=== PATIENT | female | born 1960 | race Caucasian/White ===

== ENCOUNTER → 2024-04-22 10:00 | Outpatient (REF) | payer BC, SELFPAY | LOC: RCS 10:00 | PROVIDERS: ATTENDING PHYSICIAN Internal Medicine Cardiovascular Disease; FAMILY PHYSICIAN Family Medicine | DX: I10 Essential (primary) hypertension (principal); I49.3 Ventricular premature depolarization; Z86.79 Personal history of other diseases of the circulatory system | CPT/HCPCS: 93017; 93350 ==

== ENCOUNTER → 2024-05-13 10:38 | Outpatient (REF) | payer BC, SELFPAY | LOC: WDC 10:38 | PROVIDERS: ATTENDING PHYSICIAN Family Medicine | DX: Z78.0 Asymptomatic menopausal state (principal); Z12.31 Encounter for screening mammogram for malignant neoplasm of breast | CPT/HCPCS: 77063; 77067; 77080 ==

== ENCOUNTER → 2024-07-19 15:16 | Outpatient (REF) | payer BC, SELFPAY | LOC: RAD 15:16 | PROVIDERS: ATTENDING PHYSICIAN Internal Medicine Critical Care Medicine; FAMILY PHYSICIAN Family Medicine | DX: R91.8 Other nonspecific abnormal finding of lung field (principal) | CPT/HCPCS: 71250 ==

== ENCOUNTER 2024-08-22 06:15 | Day surgery (SDC) | payer BC, SELFPAY ==
[2024-08-02 12:31] VITALS: BMI 27.3
[2024-08-02 13:29] LABS: INR 0.91; PT 12.6 Sec (11.4-14.6)
[2024-08-02 13:30] LABS: APTT 25.7 Sec (23.4-35.0)
[2024-08-22] VITALS (9 sets, daily range): BP systolic 140–153; BP diastolic 68–73; BMI 27.9
[2024-08-22] MEDS: EMEND 40 MG PO (07:08)
[2024-08-22] MEDS: ZOFRAN 4 MG IV (10:41)
== END 2024-08-22 11:45 | disposition home or self-care (01) ==
LOC: SDS 06:15
PROVIDERS: ATTENDING PHYSICIAN Internal Medicine Critical Care Medicine; FAMILY PHYSICIAN Family Medicine; OTHER PHYSICIAN Internal Medicine Cardiovascular Disease
DX: J84.10 Pulmonary fibrosis, unspecified (principal); R91.8 Other nonspecific abnormal finding of lung field; R59.0 Localized enlarged lymph nodes; R06.9 Unspecified abnormalities of breathing; Z87.891 Personal history of nicotine dependence
CPT/HCPCS: 31629; 31653; 31623; 31625; 31624; 31627; 31654; 88172; 88173; 88305; 88312; 36415; 71045; 76000; 85610; 85730; 87015; 87070; 87102; 87116; 87205; 88112; 88333; 93005; 94640; C1887

== ENCOUNTER 2024-09-23 06:24 | Day surgery (SDC) | payer BC, SELFPAY | END 2024-09-23 11:23 | disposition home or self-care (01) | LOC: GI 06:24 | PROVIDERS: ATTENDING PHYSICIAN Internal Medicine Gastroenterology | DX: Z12.11 Encounter for screening for malignant neoplasm of colon (principal); K64.8 Other hemorrhoids | CPT/HCPCS: G0105 ==

== ENCOUNTER → 2024-09-28 08:50 | Outpatient (REF) | payer BC, SELFPAY | LOC: RAD 08:50 | PROVIDERS: ATTENDING PHYSICIAN Family Medicine | DX: R07.81 Pleurodynia (principal); M79.641 Pain in right hand | CPT/HCPCS: 71101; 73130 ==

== ENCOUNTER 2025-01-02 16:31 | Emergency (ER) | payer BC, MEDICARE, SELFPAY ==
[2025-01-02 16:33] VITALS: BP 183/92
[2025-01-02 16:55] LABS: Urine Albumin 2+ (Neg - Trace); Urine Bilirubin Negative (Negative); Urine Character Slightly Cloudy (Clear); Urine Color Yellow; Urine Glucose Negative (Negative); Urine Ketone Negative (Negative); Urine Leukocyte 1+ (Negative); Urine Nitrite Negative (Negative); Urine Occult Blood 4+ (Negative); Urine Urobilinogen Negative (Neg - 1+)
[2025-01-02 17:02] LABS: % Basophils 0.4 % (0-2); % Eosinophils 0.8 % (0-6); % Immature Granulocytes 0.2 % (0-0.5); % Lymphocytes 25.7 % (20.5-51.1); % Monocytes 8.5 % (1.7-9.3); % Neutrophils 64.4 % (42.2-75.2); Absolute Eosinophils 0.1 10^3/uL (0-0.7); Absolute Lymphocytes 2.5 10^3/uL (1.2-3.4); Absolute Monocytes 0.8 10^3/uL (0.1-0.6); Absolute Neutrophils 6.2 10^3/uL (1.4-6.5); Hematocrit 46.3 % (37.0-47.0); Hemoglobin 16.1 g/dL (12.0-16.0); Mean Corp Hgb Conc. 34.8 g/dL (33.0-37.0); Mean Corpuscular Hgb 31.4 pg (27.0-31.0); Mean Corpuscular Volume 90.4 fL (81.0-99.0); Mean Platelet Volume 12.2 fL (7.4-10.4); Nucleated Red Blood Cells % 0 %; Platelet Count 222 10^3/uL (130-400); Red Blood Cell Count 5.12 10^6/uL (4.20-5.40); Red Cell Dist. Width 13.5 % (11.5-14.5); White Blood Cell Count 9.6 10^3/uL (4.8-10.8)
[2025-01-02 17:09] LABS: Urine Mucus Few
[2025-01-02 17:10] LABS: Urine Bacteria Many (Negative); Urine Red Blood Cell 16-20 /HPF (0-2)
[2025-01-02 18:17] LABS: ALT (SGPT) 37 U/L (0-35); AST (SGOT) 27 U/L (14-36); Albumin 5.1 g/dl (3.5-5.0); Alkaline Phosphatase 94 U/L (38-126); Blood Urea Nitrogen 28 mg/dl (7-17); Calcium 11.2 mg/dl (8.4-10.2); Carbon Dioxide 30 mmol/L (22-30); Chloride 115 mmol/L (98-107); Glucose 114 mg/dl (70-99); Potassium 5.1 mmol/L (3.5-5.1); Sodium 147 mmol/L (135-145); Total Bilirubin 0.8 mg/dl (0.2-1.3); Total Protein 7.6 g/dl (6.3-8.2); eGFR 55.76
[2025-01-02 22:35] VITALS: BP 123/66
[2025-01-02] MEDS: KEFLEX 500 MG PO (22:40)
--- NOTE | 2025-01-03 00:27 | ED.GENMED ---
History of Present Illness
General
Chief Complaint: Flank Pain
Source: patient
Exam Limitations: none
Time Seen by Provider: 01/02/25 20:00
Nursing documentation reviewed up to this point in time: agreed with
History of Present Illness
History of Present Illness:
Patient to ED wt complaint of left flank pain. symptoms started earlier today with frequency. States this afternoon flank pain developed. She has a prior history of kidney stones. Brought to ED by spouse for eval. She denies fever/chills,
vomiting. 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
Past History
Past History
ED Past Medical History: Other (mvp, thyroid disorder, fibromyalgia)
ED Past Surgical History: Gynecological (vag hys)
Social History
Tobacco: Non-smoker
Personal:
Living: with family
Family History
Family History: Other (Noncontributory)
Review of Systems
Review of Systems
Allergies reviewed?: Yes
All Other Systems: ROS reviewed and negative except as documented in HPI and ROS
Constitutional: Reports no symptoms
EENT: Reports no symptoms
Respiratory: Reports no symptoms
Cardiac: Reports no symptoms
ABD/GI: Reports no symptoms
: Reports flank pain
Musculoskeletal: Reports no symptoms
Skin: Reports no symptoms
Neurological: Reports no symptoms
Psychiatric: Reports no symptoms
Phy Exam
General Physical Exam
General Presentation: mild distress
General age: appears stated age
General Skin: warm and dry
General Habitus: normal
General Mental: alert
General Hydration: appears well hydrated
Gastrointestinal Exam
Gastrointestinal Exam: normal bowel sounds, non tender, soft, no organomegaly, no pulsatile mass, non distended and other (left flank pain)
Musculoskeletal Exam
Musculoskeletal Exam: full ROM and neuro vasc intact
Skin Exam
Skin Exam: normal color, warm/dry and no rash
Psychiatric Exam
Psychiatric Exam: normal mood/affect
Course
Orders/Labs/Results
Orders:
Orders
01/02/25 16:47
Complete Blood Count/With Diff Urgent
Urinalysis Reflex To Culture Urgent
Date Specimen was Collected: 01/02/25
Time Specimen was Collected: 16:36
Urine Microscopic Reflex Cult Urgent
Urine Culture Urgent
GIGI Source: U
Specimen Description:
Date Specimen was Collected: 01/02/25
Time Specimen was Collected: 16:36
01/02/25 17:57
Comprehensive Metabolic Panel Urgent
01/02/25 19:31
CT Abd/pel Without Iv Or Oral Urgent
Comment:
Reason For Exam: left flank pain since this am
01/02/25 22:23
Cephalexin Monohydrate [Keflex] 500 mg PO NOW STA
01/02/25 22:40
Cephalexin Monohydrate [Keflex] 500 mg .ROUTE .STK-MED ONE
Abnormal Lab Results
01/02/25 01/02/25
16:47 17:57
Hgb 16.1 H g/dL
(12.0-16.0)
MCH 31.4 H pg
(27.0-31.0)
MPV 12.2 H fL
(7.4-10.4)
Absolute Monos (auto) 0.8 H 10^3/uL
(0.1-0.6)
Sodium 147 H mmol/L
(135-145)
Chloride 115 H mmol/L
(98-107)
BUN 28 H mg/dl
(7-17)
Creatinine 1.1 H mg/dL
(0.6-1.0)
Glucose 114 H mg/dl
(70-99)
Calcium 11.2 H mg/dl
(8.4-10.2)
ALT 37 H U/L
(0-35)
Albumin 5.1 H g/dl
(3.5-5.0)
Ur Occult Blood Reflex 4+ A
(Negative)
Leukocyte Esterase Rfl 1+ A
(Negative)
Urine RBC 16-20 A /HPF
(0-2)
Urine WBC (Reflex) 11-15 A /HPF
(0-5)
Urine Bacteria (Reflex) Many A
(Negative)
Urine Albumin (Reflex) 2+ A
(Neg - Trace)
01/02/25 16:47
01/02/25 17:57
Vital Signs
Initial and Last Documented VS:
Initial Vital Signs
Temp Pulse Resp BP Pulse Ox
98.1 F 71 20 183/92 100
01/02/25 16:33 01/02/25 16:33 01/02/25 16:33 01/02/25 16:33 01/02/25 16:33
Last Documented Vital Signs
Temp Pulse Resp BP Pulse Ox
98.1 F 59 14 123/66 99
01/02/25 16:33 01/02/25 22:35 01/02/25 22:35 01/02/25 22:35 01/02/25 22:35
*Radiology
Radiology exam reviewed: radiology read reviewed
*Pulse Oximetry
Patient hypoxic: no
ED Attending Note
-
Portions of this chart may have been created with voice recognition software.� Occasional wrong word or��sound alike� substitutions may have occurred due to the inherent limitations of voice recognition software.
Discharge Plan
Departure
Patient Disposition: Home (Routine Discharge)
Date of Disposition: 01/02/25
Time of Disposition: 22:24
Patient with high blood pressure during this ER visit?: No
Condition: Good
Covid-19: Not Applicable
Discharge Problem:
Stone, kidney
Instructions: Urinary tract infections in adults, Kidney Stones (DC), How to Strain Your Urine
Prescriptions:
New
cephalexin 500 mg capsule
500 mg PO BID 7 Days Qty: 14 0RF
hydrocodone-acetaminophen 5-325 mg tablet
1 tab PO Q4H PRN (Reason: Pain) Qty: 14 0RF
No Action
polyethylene glycol 3350 17 GRAMS powder in packet
17 grams PO PRN PRN (Reason: constipation)
Probiotic
1 cap PO DAILY
amitriptyline 75 mg Tablet
75 mg PO HS
metoprolol succinate 50 mg Tablet Extended Release 24 Hr
50 mg PO BID
levothyroxine 100 mcg Tablet
100 mcg PO DAILY
Referrals:
Momo Pineda MD [Active] - Call in 1-3 days for appt
Judith Srivastava MD [Family Provider] -
Activity Restrictions/Additional Instructions:
Return to the emergency department immediately for any changes in/worsening of your symptoms.
Interventions
Interventions:
*Risk Screen - Suicide Last Done: 01/02/25 22:42
*General Assessment Last Done: 01/02/25 16:33
*Neglect/Abuse Screening Last Done: 01/02/25 16:33
*ED- Fall Risk Assessment Last Done: 01/02/25 20:57
*Nursing Disposition Last Done: 01/02/25 22:42
RZ-Ykoxkp-Oqmhzboszv Assessment Last Done: 01/02/25 20:35
ED-Female Genitourinary Assessment Last Done: 01/02/25 20:35
Discharge Date and Time
Discharge Date/Time: 01/02/25 22:43
Print Language: FRENCH
== END 2025-01-02 22:43 | disposition home or self-care (01) ==
LOC: EMR 16:31
PROVIDERS: Emergency Medicine; EMERGENCY PHYSICIAN Student in an Organized Health Care Education/Training Program; FAMILY PHYSICIAN Family Medicine
DX: N20.0 Calculus of kidney (principal); R35.0 Frequency of micturition; M79.7 Fibromyalgia; E07.9 Disorder of thyroid, unspecified; I34.1 Nonrheumatic mitral (valve) prolapse; R01.1 Cardiac murmur, unspecified; J42 Unspecified chronic bronchitis; G47.30 Sleep apnea, unspecified; E03.9 Hypothyroidism, unspecified; Z87.442 Personal history of urinary calculi; Z85.820 Personal history of malignant melanoma of skin
CPT/HCPCS: 99284; 74176; 80053; 81003; 81015; 85025; 87086

== ENCOUNTER → 2025-01-17 07:17 | Outpatient (REF) | payer MEDICARE, BC, SELFPAY | LOC: HWRAD 07:17 | PROVIDERS: ATTENDING PHYSICIAN Family Medicine | DX: K82.8 Other specified diseases of gallbladder (principal); Z80.0 Family history of malignant neoplasm of digestive organs | CPT/HCPCS: 76700 ==

== ENCOUNTER → 2025-01-31 11:37 | Outpatient (REF) | payer MEDICARE, BC, SELFPAY | LOC: RAD 11:37 | PROVIDERS: ATTENDING PHYSICIAN Surgery; FAMILY PHYSICIAN Family Medicine | DX: N13.2 Hydronephrosis with renal and ureteral calculous obstruction (principal) | CPT/HCPCS: 74018 ==

== ENCOUNTER → 2025-03-13 17:30 | Outpatient (REF) | payer MEDICARE, BC, SELFPAY | LOC: RAD 17:30 | PROVIDERS: ATTENDING PHYSICIAN Surgery; FAMILY PHYSICIAN Family Medicine | DX: N20.0 Calculus of kidney (principal) | CPT/HCPCS: 74176 ==

== ENCOUNTER → 2025-05-26 10:45 | Outpatient (REF) | payer MEDICARE, BC, SELFPAY | LOC: WDC 10:45 | PROVIDERS: ATTENDING PHYSICIAN Family Medicine | DX: Z12.31 Encounter for screening mammogram for malignant neoplasm of breast (principal) | CPT/HCPCS: 77063; 77067 ==

== ENCOUNTER → 2025-07-12 07:32 | Outpatient (REF) | payer MEDICARE, BC, SELFPAY ==
[2025-07-12 09:24] LABS: Hematocrit 49.1 % (37.0-47.0); Hemoglobin 15.8 g/dL (12.0-16.0); Mean Corp Hgb Conc. 32.2 g/dL (33.0-37.0); Mean Corpuscular Volume 95.5 fL (81.0-99.0); Nucleated Red Blood Cells % 0 %; Platelet Count 199 10^3/uL (130-400); Red Cell Dist. Width 13.1 % (11.5-14.5)
[2025-07-12 09:57] LABS: ALT (SGPT) 22 U/L (0-35); AST (SGOT) 24 U/L (14-36); Albumin 4.5 g/dl (3.5-5.0); Alkaline Phosphatase 70 U/L (38-126); Blood Urea Nitrogen 25 mg/dl (7-17); Calcium 10.1 mg/dl (8.4-10.2); Carbon Dioxide 28 mmol/L (22-30); Chloride 105 mmol/L (98-107); Glucose 89 mg/dl (70-99); HDL Cholesterol 88 mg/dl; LDL Cholesterol, Calculated 120 mg/dl; Potassium 4.9 mmol/L (3.5-5.1); Sodium 141 mmol/L (135-145); Total Protein 7.0 g/dl (6.3-8.2); Very Low Density Lipoprotein 18 mg/dl (0-30); eGFR > 60.00
== END ==
LOC: REG 07:32
PROVIDERS: ATTENDING PHYSICIAN Family Medicine
DX: E78.00 Pure hypercholesterolemia, unspecified (principal); I10 Essential (primary) hypertension; E03.9 Hypothyroidism, unspecified
CPT/HCPCS: 36415; 80053; 80061; 84443; 85025

== ENCOUNTER → 2025-07-18 10:33 | Outpatient (REF) | payer MEDICARE, BC, SELFPAY | LOC: HWRAD 10:33 | PROVIDERS: ATTENDING PHYSICIAN Internal Medicine Critical Care Medicine; FAMILY PHYSICIAN Family Medicine | DX: R91.8 Other nonspecific abnormal finding of lung field (principal) | CPT/HCPCS: 71250 ==

== ENCOUNTER → 2025-07-26 08:06 | Outpatient (REF) | payer MEDICARE, BC, SELFPAY | LOC: RAD 08:06 | PROVIDERS: ATTENDING PHYSICIAN Surgery; FAMILY PHYSICIAN Family Medicine | DX: K80.20 Calculus of gallbladder without cholecystitis without obstruction (principal) | CPT/HCPCS: 76700 ==